=== PATIENT | female | born 1945 | race Caucasian/White ===

== ENCOUNTER → 2020-07-12 | Day surgery (SDC) | payer MEDICARE, OTHER ==
[2020-07-12 13:16] VITALS: BP 174/90
== END | disposition home or self-care (01) ==
LOC: SURG 13:03
PROVIDERS: ATTEND Anesthesiology
DX: M54.9 Dorsalgia, unspecified (principal); M41.9 Scoliosis, unspecified; M46.1 Sacroiliitis, not elsewhere classified; M47.816 Spondylosis without myelopathy or radiculopathy, lumbar region; Z79.899 Other long term (current) drug therapy
CPT/HCPCS: 99214; G0463